=== PATIENT | female | born 1985 | race Asian ===

== ENCOUNTER 2022-09-02 05:28 | Emergency (ER) | payer MEDICAID ==
[~2022-09-02] VITALS: Ht 157.5 cm; Wt 58.8 kg
[2022-09-02] MEDS ORDERED: IPRATROPIUM BROMIDE (0.02%) 0.5MG/2.5ML NEB HHN STA (10:08)
[2022-09-02] MEDS ORDERED: PREDNISONE 20MG TABLET PO STA (10:08)
[2022-09-02] MEDS ORDERED: ALBUTEROL (0.083%) 2.5MG/3ML NEB HHN STA (10:08)
[2022-09-02] MEDS ORDERED: TAM75 MT (10:56)
[2022-09-02] MEDS ORDERED: ALBU05 NEB (10:56)
[2022-09-02] MEDS ORDERED: P20 MT (10:56)
[2022-09-02] MEDS ORDERED: ALBU6.7H3 INH (10:56)
[2022-09-02 12:47] VITALS: BP 114/66
== END 2022-09-02 12:49 | disposition home or self-care (01) ==
LOC: ER 05:28
DX: J45.901 Unspecified asthma with (acute) exacerbation (principal); J11.1 Influenza due to unidentified influenza virus with other respiratory manifestations; Z79.899 Other long term (current) drug therapy
CPT/HCPCS: 71045; 94640; 99283; J7512; Z7610